=== PATIENT | female | born 2000 | race Caucasian/White ===

== ENCOUNTER → 2022-08-25 | Outpatient (CLI) | payer OTHER ==
[~2022-08-25] MED LIST: AMOCLA250S PO; IBUP100S; TYLENOL
== END | disposition home or self-care (01) ==
LOC: RAD SHORT 16:00
PROVIDERS: Advanced Practice Midwife
DX: Z01.419 Encounter for gynecological examination (general) (routine) without abnormal findings (principal)
CPT/HCPCS: G0145